=== PATIENT | female | born 1985 | race Caucasian/White ===

== ENCOUNTER → 2023-10-21 13:56 | Outpatient (CLI) | payer OTHER, SELFPAY | LOC: PHYS 13:58 | PROVIDERS: Family Provider Registered Nurse; PCP Registered Nurse; Referring Provider Registered Nurse; Visit Provider Registered Nurse | DX: G56.00 Carpal tunnel syndrome, unspecified upper limb (principal) | CPT/HCPCS: 95886; 95913 ==